=== PATIENT | male | born 1960 | race Two or more races ===

== ENCOUNTER 2023-12-16 00:08 | Emergency (ER) | payer BC, MEDICAID ==
[~2023-12-16] VITALS: Ht 170.2 cm; Wt 63.5 kg
[2023-12-16 00:32] VITALS: TEMP 99.9
[2023-12-16] MEDS: KETOROLAC TROMETHAMINE 15 MG/ML VIAL IV ONE (01:01)
[2023-12-16 01:13] LABS: BASOPHILS # (AUTO) 0.1 K/uL (0.0-0.2); BASOPHILS % (AUTO) 0.9 % (0.0-2.0); EOSINOPHILS # (AUTO) 0.1 K/uL (0.0-0.7); EOSINOPHILS % (AUTO) 0.8 % (0.0-6.0); HEMATOCRIT 43 % (39-51); HEMOGLOBIN 14.6 g/dL (13.5-17.5); LYMPHOCYTES # (AUTO) 0.4 K/uL (0.8-4.8); LYMPHOCYTES % (AUTO) 2.7 % (20.0-44.0); MEAN CORPUSCULAR HEMOGLOBIN 32 PG (26.0-33.0); MEAN CORPUSCULAR HGB CONC 34 g/dl (31.0-36.0); MEAN CORPUSCULAR VOLUME 96 fL (80-96); MONOCYTES # (AUTO) 0.4 K/uL (0.1-1.30); MONOCYTES % (AUTO) 2.7 % (2.0-12.0); NEUTROPHILS # (AUTO) 12.4 K/uL (1.8-8.9); NEUTROPHILS % (AUTO) 92.9 % (43.0-81.0); PLATELET COUNT (AUTO) 102 K/uL (150-450); RED CELL DISTRIBUTION WIDTH 13.5 % (11.5-15.0); WHITE BLOOD COUNT (AUTO) 13.3 K/uL (4.3-11.0)
[2023-12-16 01:15] LABS: BILIRUBIN,URINE NEGATIVE (NEGATIVE); BLOOD, URINE 1+ Ery/uL (NEGATIVE); COLOR,URINE YELLOW (YELLOW); KETONES,URINE 1+ mg/dL (NEGATIVE); LEUKOCYTE ESTERASE ,URINE 2+ (NEGATIVE); NITRITE, URINE NEGATIVE (NEGATIVE); PROTEIN,URINE NEGATIVE (NEGATIVE); UGLUCOSE NEGATIVE (NEGATIVE); UROBILINOGEN,URINE 0.2 EU/dL (0.2)
[2023-12-16 01:16] LABS: APPEARANCE,URINE HAZY (CLEAR)
[2023-12-16 01:19] LABS: CALCIUM, SERUM 8.3 mg/dL (8.5-10.1); CREATININE 0.9 mg/dL (0.6-1.3); POTASSIUM 3.7 mmol/L (3.5-5.1)
[2023-12-16 01:33] LABS: WBC,URINE 81-100 /HPF (0-3)
[2023-12-16 01:34] LABS: ADD URINE CULTURE YES; BACTERIA,URINE Few /HPF (None Seen); SQUAMOUS EPITHELIAL CELL,UR None Seen /HPF (None Seen)
[2023-12-16] MEDS ORDERED: IOHEXOL-300 100 ML VIAL IV ONE (01:35)
[2023-12-16] MEDS ORDERED: CT SWABBABLE VALVE TRANS SET 1 EA INFUS.SET MC ONE (01:35)
[2023-12-16] MEDS ORDERED: IV NS 0.9% 250 ML IV ONE (01:36)
[2023-12-16] MEDS ORDERED: CEFTRIAXONE 1GM BAG (ER ONLY) 50 ML IV ONE (02:32)
[2023-12-16] MEDS: CEFTRIAXONE 1GM BAG (ER ONLY) 1 GM/50 ML PIGGYBACK IV ONE (02:37)
[2023-12-16] MEDS: IV NS 0.9% 1,000 ML BAG IV ONE (02:37)
[2023-12-16] MEDS ORDERED: LEVO500T90 PO (03:07)
[2023-12-16 03:44] VITALS: BP 112/80; O2SAT 97
== END 2023-12-16 03:46 | disposition home or self-care (01) ==
LOC: ER 00:25
DX: N39.0 Urinary tract infection, site not specified (principal); I10 Essential (primary) hypertension; N40.0 Benign prostatic hyperplasia without lower urinary tract symptoms; E78.5 Hyperlipidemia, unspecified; Z90.49 Acquired absence of other specified parts of digestive tract
CPT/HCPCS: 99285; 74177; 96365; 96375; 85025; 80048; 87086; 81001; 36415; J7050; J0696; Q9967; J1885

== ENCOUNTER 2023-12-16 22:55 | Emergency (ER) | payer BC, MEDICAID ==
[~2023-12-16] VITALS: Ht 170.2 cm; Wt 65.8 kg
[~2023-12-16 22:55] MED LIST: LEVO500T90 PO
[2023-12-16] MEDS ORDERED: ACETAMINOPHEN ES 500 MG TABLET ONE (23:40)
[2023-12-16 23:55] VITALS: BP 116/86; TEMP 214.3; O2SAT 98
[2023-12-17] MEDS ORDERED: ACETAMINOPHEN 325 MG TABLET PO ONE
== END 2023-12-16 23:55 | disposition home or self-care (01) ==
LOC: ER 23:00
DX: R50.9 Fever, unspecified (principal); N39.0 Urinary tract infection, site not specified; Z90.49 Acquired absence of other specified parts of digestive tract; E78.5 Hyperlipidemia, unspecified; Z79.899 Other long term (current) drug therapy

== ENCOUNTER 2025-05-07 10:13 | Emergency (ER) | payer BC ==
[~2025-05-07] VITALS: Ht 167.6 cm; Wt 56.2 kg
[2025-05-07] MEDS: IV NS 0.9% 1,000 ML BAG IV ONE (10:41)
[2025-05-07] MEDS ORDERED: KETOROLAC TROMETHAMINE INJ 30 MG/ML VIAL ONE (10:43)
[2025-05-07] MEDS: KETOROLAC TROMETHAMINE INJ 30 MG/ML VIAL IV ONE (10:45)
[2025-05-07 11:00] LABS: PLATELET COUNT (AUTO) 111 K/uL (150-450); RED BLOOD CELL COUNT(AUTO) 4.81 MIL/uL (4.5-6.0); RED CELL DISTRIBUTION WIDTH 15.4 % (11.5-15.0); WHITE BLOOD COUNT (AUTO) 4.7 K/uL (4.3-11.0)
[2025-05-07 11:02] LABS: CALCIUM, SERUM 8.7 mg/dL (8.5-10.1); CREATININE 0.8 mg/dL (0.6-1.3); SODIUM SERUM 139.0 mmol/L (136-145); UREA NITROGEN, BLOOD 17.0 mg/dL (7-18)
[2025-05-07 11:03] LABS: APPEARANCE,URINE CLEAR (CLEAR); BLOOD, URINE NEGATIVE Ery/uL (NEGATIVE); LEUKOCYTE ESTERASE ,URINE NEGATIVE (NEGATIVE); NITRITE, URINE NEGATIVE (NEGATIVE); UGLUCOSE NEGATIVE (NEGATIVE)
[2025-05-07 11:04] LABS: INR 0.99 (0.91-1.10)
[2025-05-07 11:09] LABS: ASPARTATE AMINOTRANSFERASE 28.0 U/L (15-37); TOTAL PROTEIN, SERUM 7.6 g/dL (6.4-8.2)
[2025-05-07] MEDS ORDERED: KETO10TA2 PO (11:17)
[2025-05-07 11:40] VITALS: BP 120/80; TEMP 98.5; O2SAT 99
== END 2025-05-07 11:40 | disposition home or self-care (01) ==
LOC: ER 10:25
DX: R10.9 Unspecified abdominal pain (principal); E78.5 Hyperlipidemia, unspecified; Z90.49 Acquired absence of other specified parts of digestive tract
CPT/HCPCS: 99285; 74176; 96374; 96361; 85025; 80048; 87086; 83690; 80076; 81003; 36415; 85730; 86850; J1885; J7030